=== PATIENT | male | born 1950 | race Caucasian/White ===

== ENCOUNTER → 2016-10-10 | Outpatient (CLI) | payer MEDICARE, OTHER | LOC: RAD 07:28 | PROVIDERS: ATTEND Specialist | DX: R10.9 Unspecified abdominal pain (principal); E11.8 Type 2 diabetes mellitus with unspecified complications; E66.01 Morbid (severe) obesity due to excess calories; R53.83 Other fatigue | CPT/HCPCS: 36415; 76705; 83036 ==